=== PATIENT | female | born 1930 | race Caucasian/White ===

== ENCOUNTER 2018-09-22 21:28 | Inpatient (IN) ==
[2018-09-22] MEDS ORDERED: fentaNYL citrate 100 MCG/2 ML VIAL ONE (21:49)
[2018-09-22 22:06] LABS: Basophils # (auto) 0.01 K/uL (0-0.2); Basophils % (auto) 0.1 %; Eosinophils # (auto) 0.01 K/uL (0-0.5); Eosinophils % (auto) 0.1 %; Hematocrit (blood only) 37.9 % (37-47); Hemoglobin 12.6 g/dL (12.0-16.0); Immature Granulocytes # (auto) 0.02 K/uL (0.00-0.02); Immature Granulocytes % (auto) 0.2 %; Lymphocytes # (auto) 0.69 K/uL (1.2-3.4); Mean Corpuscular Hgb Conc 33.2 g/dL (32-36); Mean Corpuscular Volume 96.4 fL (80-100); Mean Platelet Volume 10.9 fL (7.4-10.4); Monocytes # (auto) 0.51 K/uL (0.11-0.59); Monocytes % (auto) 5.2 %; Neutrophils # (auto) 8.61 K/uL (1.4-6.5); Neutrophils % (auto) 87.4 %; Platelet Count 195 K/uL (130-400); RDW Standard Deviation 49.6 fL (36.4-46.3); Red Blood Count 3.93 M/uL (4.2-5.4); White Blood Count 9.85 K/uL (4.8-10.8)
[2018-09-22 22:22] LABS: Partial Thromboplastin Ratio 0.8; Partial Thromboplastin Time 22.1 Seconds (21.0-31.0); Prothrombin Time 10.4 Seconds (9.0-12.0)
[2018-09-22 22:24] LABS: Albumin Level 3.2 gm/dl (3.4-5.0); BUN Creatinine Ratio 15.5 (10-20); Calcium 9.3 mg/dl (8.5-10.1); Creatinine Clr Calc Pharmacy 46.6 ml/min; Est GFR (Non-African American) 63.9; Potassium 3.6 mmol/L (3.5-5.1)
[2018-09-22 22:27] LABS: Albumin Globulin Ratio 0.9 (0.9-2); Bilirubin,Total 0.4 mg/dl (0.2-1); Globulin 3.7 gm/dl (2.5-4.0); Total Protein 6.9 gm/dl (6.4-8.2)
[2018-09-22 22:28] LABS: Appearance Urine Clear (Clear); Bilirubin Urine Negative (Negative); Blood Urine Negative (Negative); Color Urine Yellow; Glucose Urine UA Negative (Negative); Ketones Urine Negative (Negative); Leukocyte Esterase Urine Negative (Negative); Nitrite Urine Negative (Negative); Protein Urine Negative (Negative); Specific Gravity Urine 1.014 (1.000-1.030); Urobilinogen Urine Negative (Negative)
--- NOTE | 2018-09-22 22:48 | XRay Report ---
XR hip RT 2-3V w pelvis CLINICAL HISTORY: fall eval for fx. Right hip pain. COMPARISON STUDY: None. FINDINGS: A right femoral neck fracture demonstrating 1.5 cm of superior displacement. No dislocation . The visualized pelvic bones and left hip are intact. No fractures identified within the sacrum. IMPRESSION: Mildly displaced right femoral neck fracture. Electronically signed by: León Joyner M.D. 09/22/2018 10:46 PM
--- NOTE | 2018-09-22 22:55 | XRay Report ---
XR chest 1V portable HISTORY: Fall. Right hip pain. Right hip fracture. COMPARISON: None. FINDINGS: No pneumothorax. No pleural effusions. Mitral annulus calcifications are noted. The heart i s top normal in size. The lungs are clear. Lucency through the left posterior eighth rib appears to b e due to overlying soft tissue artifact rather than a rib fracture. IMPRESSION: No acute process within the chest. Lucency through the left posterior eighth rib is likely due overly ing soft tissue artifact. Recommend correlation for point tenderness to exclude the possibility of an acute rib fracture. Electronically signed by: León Joyner M.D. 09/22/2018 10:54 PM
[2018-09-22] MEDS ORDERED: MoRPHine SULFATE 2 MG/ML CARP IV STA (23:33)
[2018-09-22] MEDS ORDERED: ONDANSETRON INJ 2 MG/ML 2 ML VIAL IV STA (23:33)
--- NOTE | 2018-09-22 23:59 | Emergency Department Note ---
Entered by Yeimy Contreras acting as a scribe for Jhonny Atwood MD History of Present Illness General Chief complaint: Hip Pain Stated complaint: Right hip pain Source: patient and other (nursing staff) Mode of arrival: EMS History of Present Illness Provider complaint: hip pain Onset (ago): hour(s) 4 Location: hip (right) Maximum Pain Intensity: 2 Exacerbated By: + movement Associated symptoms: + other (-head pain, -neck pain) Treatments prior to arrival: other (fentanyl) The patient is a 88 year old female who presents to the Emergency Room with complaints of hip pain. Per the nursing staff, the patient was trying to hang something up in her garden, lost her balance, and fell on her right hip at 1700. They state that the patient's neighbor found her on the ground at 2030 and the EMS was called. The patient states that her right hip pain worsens with movement and she is experiencing no head or neck pain. She states that she experienced no head injury. The patient states that she is not on any blood thinners and no other medications. Per the nursing staff, the patient states that she has taken fentanyl in the EMS prior to arrival which alleviated her pain. Home Medications Home Medications Medication Instructions Recorded Confirmed Type Eye Vitamins 1 tab PO BID 09/22/18 09/22/18 History dextran 70-hypromellose (PF) 1 drp OPB DAILY PRN 09/22/18 09/22/18 History [Artificial Tears (PF)] Allergies Allergy/AdvReac Type Severity Reaction Status Date / Time No Known Allergies Allergy Unverified 09/22/18 22:54 Past Med/Surg History Medical History No significant medical problems Social History Feels Safe at Home: Yes Smoking Status: Former smoker Review of Systems See HPI for pertinent positives & negatives. and A total of 10 systems reviewed and were otherwise negative Physical Exam Vital Signs Vital Signs - 24 hr 09/22/18 21:32 09/22/18 22:18 09/22/18 23:15 Temperature 36.6 C Temperature Source Oral Sepsis Recent Fever Within 48 Hours No Sepsis Action Taken by Nursing No Action Required Pulse Rate 77 Pulse Rate [Apical] 70 97 H Pulse Rhythm Regular Respiratory Rate 18 22 20 Respiratory Effort / Characteristics Non-Labored Spontaneous Non-Labored Spontaneous Non-Labored Spontaneous Respiratory Depth Normal Normal Normal Respiratory Pattern Regular Blood Pressure 151/81 H Blood Pressure [Left Arm] 163/94 H 176/93 H Blood Pressure Mean 104 Blood Pressure Mean [Left Arm] 117 120 Blood Pressure Position Lying Blood Pressure Position [Left Arm] Lying Pulse Oximetry 97 98 98 Oxygen Delivery Method Room Air Room Air Room Air Constitutional: Vital signs reviewed. Eyes: Pupils are equal round reactive to light. Conjunctiva are noninjected. ENT: Pharynx is clear without erythema or exudate. Mucous membranes are dry. Neck supple without meningeal signs. No midline tenderness to the cervical spine. Respiratory: Clear to auscultation bilaterally. Breath sounds are equal bilaterally. Cardiovascular: Regular rate and rhythm. No rubs or gallops. GI: Soft, nondistended and nontender. Bowel sounds are present. Musculoskeletal: Right hip tenderness with shortening. Normal distal pulses. Integumentary: No cyanosis. Neurological: The patient is awake and alert. No focal deficits. Psychiatric: Normal affect. Course 2139: The patient was evaluated in room C4, and a complete history and physical examination were performed. 2208: I reevaluated the patient and she is currently not experiencing any pain. I discussed the patient's results with her family who had just arrived. 2300: [facility], he will do a further evaluation on the patient. 2304: I reevaluated the patient and discussed the patient's results. At this time the patient is asking for pain medications for her hip pain. The patient also shows no left rib pain or tenderness. Reevaluation(s) Reevaluation #1: I discussed the [facility]'s [facility], he will do a further evaluation on the patient. Time: 23:01 Administered Medications Discontinued Medications Morphine Sulfate (Morphine Sulfate) 2 mg IV NOW STA Stop: 09/22/18 23:34 Last Admin: 09/22/18 23:40 Dose: 2 mg Documented by: [id number] Ondansetron HCl (Zofran) 4 mg IV NOW STA Stop: 09/22/18 23:34 Last Admin: 09/22/18 23:40 Dose: 4 mg Documented by: [id number] Medical Decision Making Differential Diagnosis Differential's include hip fracture, hip dislocation, pelvic fracture, strain, hypothermia, and dehydration. Medical Records Attestation: I reviewed the patient's medical records. I did perform a limited focused review of portions of the patient's old chart on the electronic medical record. The patient has had no recent pertinent visits to this hospital. Home Medications Current Medication List: was personally reviewed by me Laboratory Data Attestation: I reviewed the patient's lab results. Result diagrams: 09/22/18 21:57 09/22/18 21:57 Lab Results 09/22/18 09/22/18 09/22/18 Range/Units 21:57 21:57 21:57 WBC 9.85 (4.8-10.8) K/uL RBC 3.93 L (4.2-5.4) M/uL Hgb 12.6 (12.0-16.0) g/dL Hct 37.9 (37-47) % MCV 96.4 (80-100) fL MCH 32.1 (25-34) pg MCHC 33.2 (32-36) g/dL RDW Std Deviation 49.6 H (36.4-46.3) fL RDW Coeff of Boris 14.0 (11.5-14.5) % Plt Count 195 (130-400) K/uL MPV 10.9 H (7.4-10.4) fL Immature Gran % (Auto) 0.2 % Neut % (Auto) 87.4 % Lymph % (Auto) 7.0 % Piute % (Auto) 5.2 % Eos % (Auto) 0.1 % Baso % (Auto) 0.1 % Immature Gran # (Auto) 0.02 (0.00-0.02) K/uL Neut # (Auto) 8.61 H (1.4-6.5) K/uL Lymph # (Auto) 0.69 L (1.2-3.4) K/uL Piute # (Auto) 0.51 (0.11-0.59) K/uL Eos # (Auto) 0.01 (0-0.5) K/uL Baso # (Auto) 0.01 (0-0.2) K/uL PT 10.4 (9.0-12.0) Seconds INR 1.0 (0.9-1.1) APTT 22.1 (21.0-31.0) Seconds PTT Ratio 0.8 Sodium 145 (136-145) mmol/L Potassium 3.6 (3.5-5.1) mmol/L Chloride 108 H (98-107) mmol/L Carbon Dioxide 26 (21-32) mmol/L Anion Gap 11.0 (3-11) BUN 13 (7-18) mg/dl Creatinine 0.83 (0.6-1.2) mg/dl Est Cr Clr Drug Dosing 46.6 ml/min Est GFR ( Amer) 74.0 Est GFR (Non-Af Amer) 63.9 BUN/Creatinine Ratio 15.5 (10-20) Glucose 100 H (70-99) mg/dl Calcium 9.3 (8.5-10.1) mg/dl Total Bilirubin 0.4 (0.2-1) mg/dl AST 21 (15-37) U/L ALT 15 (12-78) U/L Alkaline Phosphatase 79 (45-117) U/L Total Protein 6.9 (6.4-8.2) gm/dl Albumin 3.2 L (3.4-5.0) gm/dl Globulin 3.7 (2.5-4.0) gm/dl Albumin/Globulin Ratio 0.9 (0.9-2) Urine Color Urine Appearance (Clear) Urine pH (4.5-7.5) Ur Specific Holt (1.000-1.030) Urine Protein (Negative) Urine Glucose (UA) (Negative) Urine Ketones (Negative) Urine Blood (Negative) Urine Nitrite (Negative) Urine Bilirubin (Negative) Urine Urobilinogen (Negative) Ur Leukocyte Esterase (Negative) Blood Type Antibody Screen 09/22/18 09/22/18 Range/Units 21:57 22:01 WBC (4.8-10.8) K/uL RBC (4.2-5.4) M/uL Hgb (12.0-16.0) g/dL Hct (37-47) % MCV (80-100) fL MCH (25-34) pg MCHC (32-36) g/dL RDW Std Deviation (36.4-46.3) fL RDW Coeff of Boris (11.5-14.5) % Plt Count (130-400) K/uL MPV (7.4-10.4) fL Immature Gran % (Auto) % Neut % (Auto) % Lymph % (Auto) % Piute % (Auto) % Eos % (Auto) % Baso % (Auto) % Immature Gran # (Auto) (0.00-0.02) K/uL Neut # (Auto) (1.4-6.5) K/uL Lymph # (Auto) (1.2-3.4) K/uL Piute # (Auto) (0.11-0.59) K/uL Eos # (Auto) (0-0.5) K/uL Baso # (Auto) (0-0.2) K/uL PT (9.0-12.0) Seconds INR (0.9-1.1) APTT (21.0-31.0) Seconds PTT Ratio Sodium (136-145) mmol/L Potassium (3.5-5.1) mmol/L Chloride (98-107) mmol/L Carbon Dioxide (21-32) mmol/L Anion Gap (3-11) BUN (7-18) mg/dl Creatinine (0.6-1.2) mg/dl Est Cr Clr Drug Dosing ml/min Est GFR ( Amer) Est GFR (Non-Af Amer) BUN/Creatinine Ratio (10-20) Glucose (70-99) mg/dl Calcium (8.5-10.1) mg/dl Total Bilirubin (0.2-1) mg/dl AST (15-37) U/L ALT (12-78) U/L Alkaline Phosphatase (45-117) U/L Total Protein (6.4-8.2) gm/dl Albumin (3.4-5.0) gm/dl Globulin (2.5-4.0) gm/dl Albumin/Globulin Ratio (0.9-2) Urine Color Yellow Urine Appearance Clear (Clear) Urine pH 5.0 (4.5-7.5) Ur Specific Holt 1.014 (1.000-1.030) Urine Protein Negative (Negative) Urine Glucose (UA) Negative (Negative) Urine Ketones Negative (Negative) Urine Blood Negative (Negative) Urine Nitrite Negative (Negative) Urine Bilirubin Negative (Negative) Urine Urobilinogen Negative (Negative) Ur Leukocyte Esterase Negative (Negative) Blood Type O Positive Antibody Screen NEGATIVE Imaging Data Radiologist's Impression: Radiology results as stated below per my review and the radiologist's interpretation: XR hip RT 2-3V w pelvis CLINICAL HISTORY: fall eval for fx. Right hip pain. COMPARISON STUDY: None. FINDINGS: A right femoral neck fracture demonstrating 1.5 cm of superior displacement. No dislocation. The visualized pelvic bones and left hip are int act. No fractures identified within the sacrum. IMPRESSION: Mildly displaced right femoral neck fracture. Electronically signed by: León Joynre M.D. 09/22/2018 10:46 PM XR chest 1V portable HISTORY: Fall. Right hip pain. Right hip fracture. COMPARISON: None. FINDINGS: No pneumothorax. No pleural effusions. Mitral annulus calcifications are noted. The heart is top normal in size. The lungs are clear. Lucency through the left posterior eighth rib appears to be due to overlying soft tissue artifact rather than a rib fracture. IMPRESSION: No acute process within the chest. Lucency through the left posterior eighth rib is likely due overlying soft tissue artifact. Recommend correlation for point tenderness to exclude the possibility of an acute rib fracture. Electronically signed by: León Joyner M.D. 09/22/2018 10:54 PM ECG Data Attestation: I personally reviewed and interpreted this ECG as follows: Indication: other (hip pain) Rate (beats per minute): 77 Findings: no PVC and no ST elevation Additional Comments: Limited interpretation due to motion artifact. Blood Pressure Blood Pressure Findings: Elevated blood pressure Blood Pressure Disposition: Referred to patients primary care provider MDM Narrative I did evaluate the patient as noted above. She is presenting with a mechanical fall with a hip injury. She appears to have a hip fracture. Her pain was controlled with fentanyl prior to arrival. The patient was placed on a continuous director of cardiac cath lab. I did order and personally review the patient's 12- lead EKG as described above. She has no signs of acute ischemia. I did order and personally reviewed the images of the patient's hip/pelvis/chest x-ray as de scribed above. She does have a femoral neck fracture. There was a question of a left rib fracture but the patient has no pain or tenderness to that area. I did order and review the patient's blood work as noted in the electronic medical record. Labs are unremarkable. She is not anemic. Her white count is not elevated. I did discuss the test results with the patient and her family. She was having some increased pain and so I did treat her with IV morphine and Zofran. I did discuss the case with the hospitalist and correctional counselor/case manager. Impression & Plan Closed fracture of right hip, Fall Discharge Plan Visit Data Chief Complaint: Hip Pain Stated Complaint: Right hip pain ED Provider: Jhonny Atwood Discharge Problem: Closed fracture of right hip, Fall Patient Disposition: Being Evaluated by Hospitalist Forms Stand Alone Forms: My [facility] Prescriptions Prescriptions: No Action Artificial Tears (PF) 0.1-0.3 % Dropperette 1 drp OPB DAILY PRN (Reason: Dry Eyes) RF: 0 Eye Vitamins 1 tab PO BID RF: 0 Referrals Referrals: PCP,NO [Primary Care Provider] - Discharge Problem: Closed fracture of right hip Qualifiers: Encounter type: initial encounter Qualified Code(s): S72.001A - Fracture of unspecified part of neck of right femur, initial encounter for closed fracture Fall Qualifiers: Encounter type: initial encounter Qualified Code(s): W19.XXXA - Unspecified f all, initial encounter The scribe's documentation has been prepared under my direction and personally reviewed by me in its entirety. I confirm that the note above accurately reflects all work, treatment, procedures, and medical decision making performed by me.
[2018-09-23] MEDS ORDERED: HYDROmorphone INJ 0.5 MG/0.5 ML SYR IV STA (00:30)
--- NOTE | 2018-09-23 00:34 | History & Physical Report ---
Date of Service September 23, 2018 Assessment & Plan (1) Closed fracture of right hip: 88-year-old female with no known past medical history except cataracts presents following a mechanical fall and subsequent right hip fracture. RCRI score of 3.9%no known ischemic heart disease, no history of CVA or congestive heart failure. Patient denies having chest pain, dyspnea at rest or with exertion. She describes being fully independent, no issues with ambulation, is able to walk upstairs. She denies seeing a doctor in the past other than her eye doctor. Review of medical records limited to ED work-up and patient's oral history. No contraindication to surgical procedure based on patient's oral history, physical exam and ED chart review. Right hip fracture Pain controlDilaudid 0.5 mg every 3 hour, n.p.o., LR at 80cc/h Ortho consult RCRI 3.9% DVT prophylaxis Contraindicated, possible surgery tomorow CODE STATUS Full (2) Fall: History of Present Illness Primary Care Provider: NO PCP 88-year-old female with no known past medical history presents with a right hip fracture following mechanical fall. The injury occurred while she was hanging something on her porch. She states that she misjudged where the hook was and fell forward. She denies any syncope or loss of consciousness prior to or after the fall. She denies any head injury. Unfortunately, patient lives alone and laid on the porch for approximately 3 hours before she was found by her neighbors. She states that she is fully independent and is able to drive and grocery shop on her own. Prior to fall the patient is able to get up and down stairs on her own. She denies any history of heart disease, renal disease, diabetes, CHF, TIA/stroke. She does not take any blood thinning medications. She endorses a healthy diet and normal bowel movements. She reports that she is never gone to a doctor other than her eye doctor and medical history is therefore unknown. Her only son lives in [place], but the patient states that she is well supported by her neighbors and her friends. Review of systems Constitutional; no fevers, chills, night sweats CV; no chest pain, no shortness of breath, no palpitations Pulmonary; no cough, no wheezing GI; no abdominal pain, no nausea/vomiting/diarrhea MSK; right hip pain standing down her right leg Allergies Allergy/AdvReac Type Severity Reaction Status Date / Time No Known Allergies Allergy Unverified 09/22/18 22:54 Home Medications Home Medications Medication Instructions Recorded Confirmed Type Eye Vitamins 1 tab PO BID 09/22/18 09/22/18 History dextran 70-hypromellose (PF) 1 drp OPB DAILY PRN 09/22/18 09/22/18 History [Artificial Tears (PF)] Past Med/Surg History Medical History No significant medical problems Social History Preferred Language: Wolof Communication Ability: Effective Rail Signal Worker Required: No Beliefs That Will Affect Care: None Current Living Situation: Alone Other Information That Helps Us Care for You: No Feels Safe at Home: Yes Safety Concerns: Feels Safe At This Time Smoking Status: Former smoker Hx Alcohol Use: No Hx Substance Use: No Review of Systems Review of Systems: All systems reviewed & are unremarkable except as noted in HPI & below Physical Exam 2 Constitutional: WD/WN, vitals as above Eyes: PERRL, conjunctivae normal, anicteric sclerae ENMT: external ear and nose normal, oropharynx normal Neck: trachea midline, no thyromegaly Respiratory: normal respiratory effort, lungs clear to auscultation Cardiovascular: Rate/Rhythm: regular rate and regular rhythm (Occasional extra beat) Heart Sounds: + murmur (2 out of 6 systolic murmur) Gastrointestinal (Abdomen): normal bowel sounds, soft, nontender, no hepatosplenomegaly Musculoskeletal: Head/Neck/Chest: normocephalic and head atraumatic Equal strength in upper extremity, deferred lower extremity exam as the patient is in severe pain, no open wounds noted on the lateral aspect of the right hip Skin: no rashes, warm and dry Neurologic: PERRL, EOMI, accommodation nl, no face palsy, no dysarthria Psychiatric: A+Ox3, euthymic affect Results & Data Vital Signs (Past 12 Hours) Vital Signs Temp Pulse Pulse Resp BP BP Pulse Ox 09/22/18 23:15 97 H 20 176/93 H 98 09/22/18 22:18 70 22 163/94 H 98 09/22/18 21:32 36.6 C 77 18 151/81 H 97 Diagnostic Findings XR chest 1V portable HISTORY: Fall. Right hip pain. Right hip fracture. COMPARISON: None. FINDINGS: No pneumothorax. No pleural effusions. Mitral annulus calcifications are noted. The heart is top normal in size. The lungs are clear. Lucency through the left posterior eighth rib appears to be due to overlying soft tissue artifact rather than a rib fracture. IMPRESSION: No acute process within the chest. Lucency through the left posterior eighth rib is likely due overlying soft tissue artifact. Recommend correlation for point t enderness to exclude the possibility of an acute rib fracture. Electronically signed by: León Joyner M.D. 09/22/2018 10:54 PM Dictated: 09/22/182242 Transcribed: 09/22/182244 XR hip RT 2-3V w pelvis CLINICAL HISTORY: fall eval for fx. Right hip pain. COMPARISON STUDY: None. FINDINGS: A right femoral neck fracture demonstrating 1.5 cm of superior displacement. No dislocation. The visualized pelvic bones and left hip are intact. No fractures identified within the sacrum. IMPRESSION: Mildly displaced right femoral neck fracture. Electronically signed by: León Joyner M.D. 09/22/2018 10:46 PM Dictated: 09/22/182245 Transcribed: 09/22/182245 Supervising Physician Co-Signing Physician Notes Pt seen/examined following resident MD Rikki Damian. Orders and plan of admission formulated with resident 88 y/o F who denies a medical history but is not in the habit of medical follow up. Presents after a mechanical fall and resultant R femoral neck fracture OE AAO x 3 S1,2 R CTAB NT, ND No CCE - pulses + P: Does not appear to have any significant cardiovascular risk. EKG pending for preop assessment. Can likely proceed to surgery. Orthopedics consulted. (1) Fall Encounter type: initial encounter Qualified Code(s): W19.XXXA - Unspecified fall, initial encounter (2) Closed fracture of right hip Encounter type: initial encounter Qualified Code(s): S72.001A - Fracture of unspecified part of neck of right femur, initial encounter for closed fracture
[2018-09-23] MEDS ORDERED: HYDROmorphone INJ 0.5 MG/0.5 ML SYR IV PRN ×2 (01:14→16:26)
[2018-09-23] MEDS ORDERED: LACTATED RINGER'S 1,000 ML IV SCH (01:14)
[2018-09-23] MEDS: HYDROmorphone INJ 0.5 MG/0.5 ML SYR IV PRN ×3 (05:45→22:40)
[2018-09-23 06:08] LABS: Hematocrit (blood only) 36.7 % (37-47); Hemoglobin 12.2 g/dL (12.0-16.0); Immature Granulocytes # (auto) 0.01 K/uL (0.00-0.02); Immature Granulocytes % (auto) 0.1 %; Lymphocytes % (auto) 9.9 %; Mean Corpuscular Hgb Conc 33.2 g/dL (32-36); Mean Corpuscular Volume 95.8 fL (80-100); Mean Platelet Volume 10.9 fL (7.4-10.4); Monocytes # (auto) 0.56 K/uL (0.11-0.59); Monocytes % (auto) 7.9 %; Neutrophils # (auto) 5.82 K/uL (1.4-6.5); Neutrophils % (auto) 82.1 %; Platelet Count 184 K/uL (130-400); RDW Coefficient of Variation 14.2 % (11.5-14.5); RDW Standard Deviation 49.8 fL (36.4-46.3); Red Blood Count 3.83 M/uL (4.2-5.4); White Blood Count 7.09 K/uL (4.8-10.8)
[2018-09-23 06:35] LABS: Albumin Level 2.9 gm/dl (3.4-5.0); BUN Creatinine Ratio 17.4 (10-20); Calcium 9.1 mg/dl (8.5-10.1); Creatinine Clr Calc Pharmacy 55.9 ml/min; Est GFR (African American) 91.4; Est GFR (Non-African American) 78.8; Potassium 3.5 mmol/L (3.5-5.1)
[2018-09-23 06:38] LABS: Albumin Globulin Ratio 0.8 (0.9-2); Bilirubin,Total 0.6 mg/dl (0.2-1); Globulin 3.5 gm/dl (2.5-4.0); Total Protein 6.4 gm/dl (6.4-8.2)
[2018-09-23] MEDS ORDERED: PROPOFOL IV EMULSION 10 MG/ML 20 ML VIAL IV ONE ×2 (09:02→12:44)
[2018-09-23] MEDS ORDERED: fentaNYL citrate 100 MCG/2 ML VIAL ONE ×2 (09:03→11:37)
[2018-09-23] MEDS ORDERED: LIDOCAINE HCL 2% 2 ML VIAL/AMP(20MG/ML) INFIL ONE ×2 (09:03→12:44)
--- NOTE | 2018-09-23 09:11 | History and Physical Report ---
DATE OF ADMISSION: 09/23/2018 CHIEF COMPLAINT: Right hip pain. HISTORY OF PRESENT ILLNESS: The patient is an 88-year-old white female who [place] who was hanging up a plant yesterday when she kind of misjudged some distance and lost her balance and fell from a ground height. She injured her right hip. She had acute onset of hip pain. She was found by her neighbors and then brought to the hospital. X-rays revealed displaced femoral neck fracture. The patient previously walked with use of a walking stick. No preexisting hip pain on this side. No other injuries. No head injury, no loss of consciousness, no neck pain. She has no real significant past medical history. PAST MEDICAL HISTORY: Significant for eye disease of unspecified nature. PAST SURGICAL HISTORY: Previous surgeries include intermittent eye exams and interventions of unspecified nature. ALLERGIES: None. CURRENT MEDICATIONS: Eye vitamins. SOCIAL HISTORY: An 88-year-old white female. She has relatives in the area, but lives by herself. [place]. Does not smoke. FAMILY HISTORY: Noncontributory. REVIEW OF HISTORY: Negative for diabetes, neurologic problems, vascular problems, bleeding disorders. No chest pain or shortness of breath. No head injury or loss of consciousness, no neck pain. OBJECTIVE: VITAL SIGNS: Temperature is 37.1. Vital signs stable. GENERAL: Physical examination shows a pleasant, elderly female. She is lying in bed and looks pretty comfortable. She is awake, alert and appropriate and oriented. MUSCULOSKELETAL: General musculoskeletal exam reveals painless range of motion of the cervical and thoracic and lumbar spine. She has no pain in her upper extremities and normal function of her upper extremities. Examination of the lower extremities reveals painless and full range of motion of left hip, knee, and ankle. Examination of the right hip and leg reveals the leg to be shortened and externally rotated. Moderate soft tissue envelope. She has no knee effusion. She can dorsiflex and plantarflex her foot appropriately. X-RAYS: X-rays of the right hip were reviewed. It shows a displaced femoral neck fracture. She has got diffuse osteopenia. No significant arthritis change on this side. 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 ASSESSMENT: An 88-year-old white female with no significant past medical history with a right displaced femoral neck fracture. PLAN: We discussed treatment options. She has been admitted by the hospitalist service. Medically, she looks stable. We are going to proceed with a right cemented bipolar hip arthroplasty. We are going to take her to the operating room and do a right cemented bipolar hip arthroplasty. The risks and benefits of this procedure were explained to the patient include but not limited to DVT, PE, , infection, neurological injury, vascular injury, bleeding problem, pain, limited range of motion, stiffness, nonunion fracture, dislocation, need for further surgery in the future, etc. The patient understands and desires to proceed. Informed consent was obtained. In the meantime, we will continue DVT prophylaxis including thigh-high TEDs and SCDs. We will likely put her on some aspirin postop. She will likely need a brief rehab stay.
[2018-09-23] MEDS ORDERED: BUPIVACAINE/EPINEPHRINE 0.5% MPF 1:200,000 30 ML VIAL ONE (11:52)
[2018-09-23] MEDS ORDERED: THROMBIN FOR SOLN 20000 UNIT KIT ONE (11:53)
[2018-09-23] MEDS ORDERED: BACITRACIN INJ 50,000 UNIT VIAL ONE (11:53)
[2018-09-23] MEDS ORDERED: ePHEDrine sulfate 50 MG/ML SYR ONE (12:44)
[2018-09-23] MEDS ORDERED: CEFAZOLIN 250 MG/ML 1 GM VIAL ONE (12:44)
[2018-09-23] MEDS ORDERED: PHENYLEPHRINE 100MCG/ML 5ML SYR ONE (12:44)
[2018-09-23] MEDS ORDERED: CEFAZOLIN 2000MG 2,000 MG/15 ML SYR IV ONE (13:14)
--- NOTE | 2018-09-23 14:00 | Post Operative Brief Note ---
Immediate Post Op Note v1 Date of Surgery September 23, 2018 Pre & Post Diagnosis Operation Date: 09/23/18 10:00 Pre-Op Diagnosis: Right Hip Fracture Post-Op Diagnosis: Right Hip Fracture Procedure Operation Date: 09/23/18 10:00 Actual Procedures p Bipolar Hip Prosthesis-Cemented(Right) - Pasquale Light MD Surgeon Pasquale Light MD Foreign Service Officer Gold, PAC Estimated Blood Loss 200 Findings Consistent with Post-Op Diagnosis Fluids 1100 cc Specimens Right Femoral Head Anesthesia Type Spinal MAC Complications none Disposition Accompanied Patient To Recovery: Yes Disposition: Recovery Room
--- NOTE | 2018-09-23 14:28 | Anesthesiology Progress Note ---
Date of Service September 23, 2018 Anesthesia Post Procedure Vital Signs Vital Signs: Temp Pulse Pulse Pulse Resp BP BP 09/23/18 13:59 36.2 C L 86 16 09/23/18 08:00 72 09/23/18 07:32 37.1 C 78 19 09/23/18 01:14 37.3 C 81 18 183/81 H 09/23/18 00:48 82 16 178/100 H 09/22/18 23:15 97 H 20 176/93 H 09/22/18 22:18 70 22 163/94 H 09/22/18 21:32 36.6 C 77 18 151/81 H BP Pulse Ox 09/23/18 13:59 136/61 100 09/23/18 08:00 09/23/18 07:32 148/74 H 93 09/23/18 01:14 93 09/23/18 00:48 95 09/22/18 23:15 98 09/22/18 22:18 98 09/22/18 21:32 97 Pain Intensity Right Hip: Pain Intensity: 6 Transfer of Care Handoff Completed per policy Notes Mental Status: alert / awake / arousable Patient Amnestic to Procedure: Yes Nausea / Vomiting: adequately controlled Pain: adequately controlled Airway Patency, RR, SpO2: stable & adequate BP & HR: stable & adequate Hydration State: stable & adequate Anesthetic Complications: no major complications apparent and Pt Satisfied with anesthetic care
--- NOTE | 2018-09-23 14:49 | XRay Report ---
XR hip RT min 2V CLINICAL HISTORY: Post-Operative implant position COMPARISON: 09/22/2018 DISCUSSION: Anatomic alignment post total right hip arthroplasty. Good contact between prosthetic and underlying bone. Expected soft tissue postoperative change. IMPRESSION: Anatomic alignment post total right hip arthroplasty. The above report was generated using voice recognition software. It may contain grammatical, syntax or spelling errors. Electronically signed by: Clark Jenkins M.D. 09/23/2018 2:48 PM
--- NOTE | 2018-09-23 15:41 | Family Medicine Progress Note ---
Date of Service September 23, 2018 Assessment & Plan (1) Closed fracture of right hip: Jaz Harris is an 88-year-old female with cataracts and no other known past medical history presents after being found down by her neighbor following a fall with right hip fracture confirmed on x-ray. Right hip fracture, closed Minimally anteriorly displaced right femoral neck fracture Orthopedic surgery consulted Pending surgical repair of right hip with Dr. Light today Pain control with hydromorphone 0.5 mg every 3 hours as needed, n.p.o. pending surgery RCRI 3.9% Fall Her fall was reportedly mechanical in nature due to over region hanging implant and missing a hook. Her history does not have any elements concerning for cardiac or neurogenic syncope. She has no other medical history, no she does not see a physician for anything other than her eyes. EKG shows normal sinus rhythm. Hypertension She has been intermittently tachycardic and hypertensive in the setting of an acute fracture. Continue to assess following surgery, and whether she would benefit from referral to a PCP on discharge for evaluation of chronic medical problems DVT prophylaxis Contraindicated in the setting of pending surgery Diet: N.p.o. pending surgery CODE STATUS: Full code Supervising Physician Co-Signing Physician Notes I personally examined the patient and verified all conway points of history and exam, discussed case, and agree with decision making with Dr Younger. Feeling reasonably well postop, asks for some pain medicine and warm blankets. Otherwise she only wants a milkshake. Vitals noted, in general she is awake and alert pleasant no distress. HEENT normocephalic atraumatic mucous members moist. Legs show no edema or erythema. Neuro shows no focal deficits Hip fractureosteoporosis work-up as an outpatient, pain control and supportive care now. DVT prophylaxisPer orthopedics (aspirin twice daily) Subjective Currently reports she feels okay today, other than the pain in her right hip. She did not have any fevers, chills, sweats overnight. She notes that her fall was mechanical, and she was not lightheaded or dizzy prior. She notes that her vision is poor, and she has cataracts at baseline. She was hanging plants in her yard and had tried to reach up to hang 1 on a hook but missed and fell.She has talked to surgery this morning, notes they plan to do hip surgery today. She denies any heart history, any history of diabetes. She has no questions or concerns today. She notes that her sister Palma is in [place] on a river cruise and her [id number] George is a retired [employer] physician. She notes that if they call we may speak with them regarding her case. Review of Systems Review of Systems: Constitutional: Denies fever, chills, malaise, Eyes: Denies double vision, vision change, eye pain. Endorses chronic decreased visual acuity. ENT: Denies ear pain, sore throat, sinus pain Cardiovascular: Denies Chest pain, chest pressure, palpitations, extremity swelling Respiratory: Denies shortness of breath, cough, sputum production, difficulty breathing Gastrointestinal: Denies abdominal pain, nausea, vomiting, constipation, diarrhea Genitourinary: Denies pain with urination, urinary urgency, urinary frequency Musculoskeletal: Denies weakness. Endorses R hip ache. Integumentary:Denies rash, lesions, bruising Neurological: Denies headache, numbness, tingling Physical Exam Physical Exam: General: A&Ox3. NAD. Cooperative. Laying in bed at time of visit. HEENT: Atraumatic, normocephalic. Pulm: CTAB A&P. -wheezes, -rales, -rhonchi. Symmetrical chest rise. No increased work of breathing. No respiratory distress. Cardiac: iii/vi systolic murmur. RRR, -rg. Radial pulses intact and symmetrical. Abdominal: Nontender, nondistended, soft. BS present. Extremity: R hip tender to palpation without erythema, warmth, bruising. Minimal tenderness of the ribs. Results & Data Vital Signs (Past 12 Hours) Vital Signs Temp Pulse Pulse Pulse Resp BP BP 09/23/18 08:00 72 09/23/18 07:32 37.1 C 78 19 09/23/18 01:14 37.3 C 81 18 183/81 H 09/23/18 00:48 82 16 178/100 H 09/22/18 23:15 97 H 20 176/93 H 09/22/18 22:18 70 22 163/94 H BP Pulse Ox 09/23/18 08:00 09/23/18 07:32 148/74 H 93 09/23/18 01:14 93 09/23/18 00:48 95 05/26/19 23:15 98 09/22/18 22:18 98 Resident Activity Tracking Resident Involvement: Resident Care Provided Care Provided: Adult Hospital Medicine (1) Closed fracture of right hip Encounter type: initial encounter Qualified Code(s): S72.001A - Fracture of unspecified part of neck of right femur, initial encounter for closed fracture
[2018-09-23] MEDS ORDERED: MAGNESIUM HYDROXIDE SUSP 30 ML UDC PO PRN (16:26)
[2018-09-23] MEDS ORDERED: BISACODYL 10 MG SUPP PR PRN (16:26)
[2018-09-23] MEDS ORDERED: ACETAMINOPHEN 325 MG TAB PO PRN (16:26)
[2018-09-23] MEDS ORDERED: NALOXONE HCL 0.4 MG/1 ML VIAL/CARP IV PRN (16:26)
[2018-09-23] MEDS ORDERED: ONDANSETRON INJ 2 MG/ML 2 ML VIAL IV PRN (16:26)
[2018-09-23] MEDS ORDERED: ACETAMINOPHEN 325 MG TAB PO STA (17:23)
[2018-09-23] MEDS: OXYCODONE HCL IR 5 MG TAB (IMMEDIATE RELEASE) PO PRN (17:35)
[2018-09-23] MEDS: CEFAZOLIN 1000MG 1,000 MG/7.5 ML SYR IV SCH (19:59)
[2018-09-23] MEDS: SENNA 8.6 MG TAB PO SCH (20:12)
[2018-09-23] MEDS: ASPIRIN 81 MG ECTAB PO SCH (20:12)
--- NOTE | 2018-09-23 22:41 | Operative Report ---
DATE OF OPERATION: 09/23/2018 SURGEON: Pasquale Light MD RN PLASTIC SURGERY: Hasmukh Ruiz PA-C PREOPERATIVE DIAGNOSIS: Right displaced femoral neck fracture. POSTOPERATIVE DIAGNOSIS: Right displaced femoral neck fracture. PROCEDURE PERFORMED: Right cemented bipolar hip arthroplasty. COMPLICATIONS: None. ESTIMATED BLOOD LOSS: 200 mL. FLUID REPLACEMENT: 1100 mL crystalloid fluid replacement. ANESTHESIA: Spinal. DRAINS: None. SPECIMENS: Right femoral head sent for pathology. OPERATIVE INDICATIONS: The patient is an 88-year-old female who lives by herself who sustained a fall yesterday while trying to hang up some plants. She had acute onset of pain and could not ambulate. She was found by neighbors, brought to Emergency Room and x-rays revealed displaced femoral neck fracture. The patient was admitted by the medicine service, and medically optimized and indicated for surgical treatment. She had no preexisting hip pain or arthritis. OPERATIVE IMPLANTS: Operative implants consisted of: 1. Biomet Echo size 7 hip fracture stem. 2. A +6/28 mm articular ball. 3. A 47 mm bipolar shell and liner. 4. A size 10 centralizer. 5. A small cement restrictor. OPERATIVE PROCEDURE: The patient taken to the operating room, identified and placed on operative table in supine position. All contact areas were appropriately padded. IV antibiotics were provided by anesthesia team. A spinal anesthetic was implemented by anesthesia team. IV antibiotics were provided. The patient was then placed on the OR table in the left lateral decubitus position. An axillary roll was placed. Stlberg hip positioner was used for positioning. The patient was grossly dirty and I initially scrubbed her right leg and hip area with Hibiclens and then prepped it with ChloraPrep and then draped in the usual sterile fashion. A posterolateral approach of the right hip was then performed through a curvilinear incision centered over the greater trochanter. Sharp dissection was carried through subcutaneously down to the level of the IT band and gluteal fascia. There was some thickening in the upper part of the incision site, but it was just kind of thickened and chronically indurated tissue. We had to dissect through this to get the IT band and gluteal fascia. The IT band and gluteal fascia were then incised longitudinally in line with skin incision. The outer lying greater trochanteric bursa was excised. The piriformis and external rotators were tagged and taken off the posterior aspect of the hip joint capsule. A posterior capsulotomy was then performed leaving 2 flaps for later repair. Hip was internally rotated. Femoral neck osteotomy cut was made just below the level of the fracture site by 1 cm above the lesser trochanter. Femoral neck was removed. The femur was retracted anteriorly. Femoral head was removed. I then sized the acetabulum to a size 47. Attention was then drawn to the femur. The proximal femur was entered with a cookie cutter followed by canal finder and lateralizing reamer. I broached the beginning with size 7 and progressing up to a 9. A calcar reamer was used to smoothen off the calcar. I then trialed the hip. She had quite a bit of offset. So the soft tissue tension was a little bit lax. After final assessment of leg lengths and soft tissue tension, we elected to place the +6 articular ball. It was fully stable in full extension and external rotation and flexion to 90 degrees, internal rotation to over 60 degrees. Soft tissue tension seemed pretty close, although it was felt a little bit lax. I elected to place these implants. All trial implants were removed. A small cement restrictor was placed. I irrigated the canal extensively. A double batch of Palacos G cement was mixed. Biomet Echo size 7 low demand fracture stem was then placed with a 10 centralizer as much anteversion as I could place it. All extraneous cement was removed. I held the stem until the cement hardened. Once the cement hardened, a +6/28 mm articular ball was placed followed by 47 bipolar shell and liner. Hip was located and once again found to be stable. Attention was then drawn toward closing. The wound was irrigated with copious amounts of pulsatile lavage solution. I did inject locally with 30 mL of 0.5% Marcaine with epinephrine. The posterior capsule was then repaired with #2 Ti-Cron suture. The external rotators were reattached to the posterior aspect of the hip abductors with #2 Ti-Cron suture. The IT band and gluteal fascia were then closed with #1 PDS suture in running fashion. The subcutaneous tissues were then closed in 2 layers, the deep layer of 0 Vicryl suture in buried interrupted fashion, subcutaneous tissue with 2-0 Dexon suture in a buried interrupted fashion. The skin was then closed with skin richie. Leg was then cleaned, dried and a sterile dressing of Xeroform, 4 x 4's, ABD pad and foam tape was applied. The patient then transferred to the recovery room in stable condition. The patient tolerated the procedure well with no complications. All needle and sponge counts correct at the end of the operation. I attest to the content of the Intraoperative Record and any orders documented therein. Any exception s are noted below.
[2018-09-24] MEDS: CEFAZOLIN 1000MG 1,000 MG/7.5 ML SYR IV SCH (04:01)
[2018-09-24 05:46] LABS: Hematocrit (blood only) 34.3 % (37-47); Hemoglobin 11.7 g/dL (12.0-16.0); Immature Granulocytes # (auto) 0.02 K/uL (0.00-0.02); Immature Granulocytes % (auto) 0.3 %; Lymphocytes # (auto) 0.41 K/uL (1.2-3.4); Lymphocytes % (auto) 5.9 %; Mean Corpuscular Hgb Conc 34.1 g/dL (32-36); Mean Corpuscular Volume 96.6 fL (80-100); Mean Platelet Volume 11.1 fL (7.4-10.4); Monocytes # (auto) 0.48 K/uL (0.11-0.59); Monocytes % (auto) 6.9 %; Neutrophils # (auto) 6.03 K/uL (1.4-6.5); Neutrophils % (auto) 86.9 %; Platelet Count 160 K/uL (130-400); RDW Coefficient of Variation 14.2 % (11.5-14.5); RDW Standard Deviation 50.2 fL (36.4-46.3); Red Blood Count 3.55 M/uL (4.2-5.4); White Blood Count 6.94 K/uL (4.8-10.8)
[2018-09-24 06:16] LABS: BUN Creatinine Ratio 16.9 (10-20); Calcium 8.2 mg/dl (8.5-10.1); Creatinine Clr Calc Pharmacy 52.8 ml/min; Est GFR (African American) 86.4; Est GFR (Non-African American) 74.6; Potassium 3.7 mmol/L (3.5-5.1)
[2018-09-24] MEDS: HYDROmorphone INJ 0.5 MG/0.5 ML SYR IV PRN ×2 (07:45→17:44)
--- NOTE | 2018-09-24 07:53 | Anesthesiology Progress Note ---
Date of Service September 24, 2018 Anesthesia Post Procedure Vital Signs Vital Signs: Temp Pulse Pulse Pulse Resp BP BP 09/24/18 07:17 36.8 C 83 18 143/81 H 09/24/18 05:50 37.2 C 82 16 121/68 09/24/18 04:00 36.9 C 90 16 159/72 H 09/24/18 01:40 09/24/18 00:05 09/23/18 22:40 36.8 C 81 16 125/72 09/23/18 18:47 99 H 16 116/68 09/23/18 17:49 111 H 16 150/80 H 09/23/18 16:47 80 16 122/67 09/23/18 16:20 37 C 84 16 145/72 H 09/23/18 15:50 36.8 C 85 18 151/76 H 09/23/18 15:26 87 14 141/75 H 09/23/18 15:25 89 16 09/23/18 15:21 82 18 152/74 H 09/23/18 15:20 81 14 09/23/18 15:19 36.6 C 09/23/18 15:16 82 16 146/77 H 09/23/18 15:15 86 18 09/23/18 15:10 89 18 154/85 H 09/23/18 15:07 82 14 09/23/18 15:06 90 149/75 H 09/23/18 15:05 82 09/23/18 15:01 83 147/93 H 09/23/18 15:00 91 H 09/23/18 14:57 83 09/23/18 14:56 87 15 152/79 H 09/23/18 14:55 89 14 09/23/18 14:51 87 16 158/78 H 09/23/18 14:50 89 18 09/23/18 14:46 84 16 162/74 H 09/23/18 14:45 86 14 09/23/18 14:41 83 16 176/76 H 09/23/18 14:40 85 14 09/23/18 14:36 86 18 147/76 H 09/23/18 14:35 99 H 16 09/23/18 14:32 90 14 09/23/18 14:31 89 14 108/56 L 09/23/18 14:30 90 16 09/23/18 14:26 84 14 161/89 H 09/23/18 14:25 84 13 09/23/18 14:21 84 18 164/73 H 09/23/18 14:20 87 18 09/23/18 14:16 85 12 167/58 H 09/23/18 14:15 87 16 09/23/18 14:11 18 146/89 H 09/23/18 14:10 14 09/23/18 14:06 87 16 149/78 H 09/23/18 14:05 90 14 09/23/18 14:01 84 16 136/61 09/23/18 14:00 88 14 09/23/18 13:59 36.2 C L 87 86 18 136/68 136/61 09/23/18 08:00 72 Pulse Ox 09/24/18 07:17 95 09/24/18 05:50 94 09/24/18 04:00 93 09/24/18 01:40 93 09/24/18 00:05 94 09/23/18 22:40 98 09/23/18 18:47 09/23/18 17:49 09/23/18 16:47 97 09/23/18 16:20 98 09/23/18 15:50 96 09/23/18 15:26 95 09/23/18 15:25 95 09/23/18 15:21 95 09/23/18 15:20 96 09/23/18 15:19 96 09/23/18 15:16 96 09/23/18 15:15 95 09/23/18 15:10 96 09/23/18 15:07 95 09/23/18 15:06 95 09/23/18 15:05 96 09/23/18 15:01 97 09/23/18 15:00 94 09/23/18 14:57 95 09/23/18 14:56 97 09/23/18 14:55 97 09/23/18 14:51 96 09/23/18 14:50 97 09/23/18 14:46 95 09/23/18 14:45 94 09/23/18 14:41 97 09/23/18 14:40 97 09/23/18 14:36 97 09/23/18 14:35 97 09/23/18 14:32 98 09/23/18 14:31 97 09/23/18 14:30 98 09/23/18 14:26 100 09/23/18 14:25 99 09/23/18 14:21 99 09/23/18 14:20 100 09/23/18 14:16 100 09/23/18 14:15 100 09/23/18 14:11 100 09/23/18 14:10 100 09/23/18 14:06 100 09/23/18 14:05 100 09/23/18 14:01 100 09/23/18 14:00 98 09/23/18 13:59 99 09/23/18 08:00 Pain Intensity Right Hip: Pain Intensity: 4 Notes Mental Status: alert / awake / arousable and participated in evaluation Patient Amnestic to Procedure: Yes Nausea / Vomiting: adequately controlled Pain: adequately controlled Airway Patency, RR, SpO2: stable & adequate BP & HR: stable & adequate Hydration State: stable & adequate Neuraxial Anesthesia: was administered and sensory block resolved Anesthetic Complications: no major complications apparent and Pt Satisfied with anesthetic care
[2018-09-24] MEDS: ASPIRIN 81 MG ECTAB PO SCH ×2 (08:40→21:28)
[2018-09-24] MEDS: OXYCODONE HCL IR 5 MG TAB (IMMEDIATE RELEASE) PO PRN ×2 (12:24→21:28)
[2018-09-24] MEDS: ACETAMINOPHEN 325 MG TAB PO PRN ×2 (12:24→21:28)
--- NOTE | 2018-09-24 13:32 | Family Medicine Progress Note ---
Date of Service September 24, 2018 Assessment & Plan (1) Closed fracture of right hip: Jaz Harris is an 88-year-old female with cataracts and no other known past medical history presents after being found down by her neighbor following a fall with right hip fracture confirmed on x-ray. Right hip fracture, closed, s/p R cemented bipolar hip arthroplasty 09/23/2018 On admission Jaz had a minimally anteriorly displaced right femoral neck fracture - Underwent surgical repair with Dr. preciado 09/23, no procedural complications - Pain control with APAP 650mg Q4H, Hydromorphone .25-5mg Q20M PRN - Activity and weight bearing status as direct per surgery -Per PT has 85% functional loss in the setting of RoM, strength, bed mobility, transfer mobility, and ambulation reduction. Recommend continued PT and acute inpatient rehab. OT reinforces that she is NOT safe to return home alone at this time and would benefit greatly from inpatient rehab. Fall Her fall was reportedly mechanical in nature due to over region hanging implant and missing a hook. Her history does not have any other elements suspicious for cardiac or neurogenic syncope. She has no other medical history, no she does not see a physician for anything other than her eyes. EKG shows normal sinus rhythm. Hypertension, resolved - Normotensive today She had been intermittently tachycardic and hypertensive in the setting of an acute fracture. DVT prophylaxis Contraindicated in the setting surgery Diet: Regular Diet CODE STATUS: Full code Dispo: KALYAN Supervising Physician Co-Signing Physician Notes I personally examined the patient and verified all conway points of history and exam, discussed case, and agree with decision making with Dr Younger. Seen just after working with occupational therapy. Having some pain. Vitals noted, in general she is awake and alert pleasant no distress. HEENT normocephalic atraumatic mucous members moist. Neuro shows no focal deficits Hip fractureosteoporosis work-up as an outpatient, pain control and supportive care now, work towards rehab. DVT prophylaxisPer orthopedics (aspirin twice daily) Continue supportive care, hopefully rehab by tomorrow. Subjective Car reports she feels well today. She is having some pain in her right hip which she feels is well controlled with hydromorphone, Tylenol, and an ice pack. She does not have any fever, chills, shortness of breath, chest pressure, chest pain, difficulty breathing, or rash. She has not yet been out of bed. Physical therapy/Occupational Therapy will see her today. No questions or concerns at time of visit. Review of Systems Review of Systems: Constitutional: Denies fever, chills, malaise, Eyes: Denies double vision, vision change, eye pain. Endorses chronic decreased visual acuity. ENT: Denies ear pain, sore throat, sinus pain Cardiovascular: Denies Chest pain, chest pressure, palpitations, extremity swelling Respiratory: Denies shortness of breath, cough, sputum production, difficulty breathing Gastrointestinal: Denies abdominal pain, nausea, vomiting, constipation, di arrhea Genitourinary: Denies pain with urination, urinary urgency, urinary frequency Musculoskeletal: Denies weakness. Endorses dull ache in her R hip, improved with Rx Integumentary: Endorses surgical incision at her R hip. Otherwise denies new rash, lesions, bruising Neurological: Denies headache, numbness, tingling Physical Exam Physical Exam: General: A&Ox3. NAD. Cooperative. Laying in bed at time of visit. HEENT: Atraumatic, normocephalic. Pulm: CTAB A&P. -wheezes, -rales, -rhonchi. Symmetrical chest rise. No increased work of breathing. No respiratory distress. Cardiac: iii/vi systolic murmur. RRR, -rg. Radial pulses intact and symmetrical. Abdominal: Nontender, nondistended, soft. BS present. Extremity: Posteriolateral R hip with surgical dressing in place, C/D/I. No pus, discharge, bleeding appreciated. Results & Data Vital Signs (Past 12 Hours) Vital Signs Temp Pulse Resp BP Pulse Ox 09/24/18 07:17 36.8 C 83 18 143/81 H 95 09/24/18 05:50 37.2 C 82 16 121/68 94 09/24/18 04:00 36.9 C 90 16 159/72 H 93 09/24/18 01:40 93 Resident Activity Tracking Resident Involvement: Resident Care Provided Care Provided: Adult Hospital Medicine (1) Closed fracture of right hip Encounter type: initial encounter Qualified Code(s): S72.001A - Fracture of unspecified part of neck of right femur, initial encounter for closed fracture
--- NOTE | 2018-09-24 14:07 | Progress Note ---
DATE: 09/24/2018 SUBJECTIVE: 88-year-old female postop day 1 from right cemented bipolar hip arthroplasty for fracture. She is doing well. She is having some fairly mild pain. She has been out of bed. No chest pain or shortness of breath. Not feeling dizzy or lightheaded. No new aches or pains. OBJECTIVE: VITAL SIGNS: Temperature 36.8. Vital signs stable. PHYSICAL EXAMINATION: GENERAL: Reveals a pleasant elderly female. She is awake, alert and oriented. She is sitting up in bed and talking to a friend. EXTREMITIES: Examination of the right hip reveals leg lengths are equal. Hip is located. Thigh is soft and supple. She is neurologically intact. LABORATORY DATA: Hemoglobin is 11.7. Hematocrit 34.3. Electrolytes are stable. ASSESSMENT: An 88-year-old white female postop day 1 from right cemented bipolar hip arthroplasty for fracture, doing well. Pain is controlled. Hip is located. She is neurologically intact. PLAN: 1. DVT prophylaxis including thigh-high TEDs, SCDs, and recommend a baby aspirin twice a day for 6 weeks. 2. PT/OT. Weight bear as tolerated. Right total hip protocol. 3. Pain control, doing well with current pain regimen. Try and limit narcotics use to avoid confusion. 4. Disposition: Plan to discharge to a rehab or retirement facility. Social service is working on this. She is orthopedically stable and acceptable for transfer any time medically stable. I need to see her back 2 weeks out from surgery date. Any orthopedic questions can directed to me at [phone].
[2018-09-24] MEDS: SENNA 8.6 MG TAB PO SCH (21:28)
[2018-09-25] MEDS: OXYCODONE HCL IR 5 MG TAB (IMMEDIATE RELEASE) PO PRN ×2 (06:29→15:40)
[2018-09-25] MEDS: ASPIRIN 81 MG ECTAB PO SCH (09:05)
[2018-09-25] MEDS: ACETAMINOPHEN 325 MG TAB PO PRN ×2 (09:06→15:44)
--- NOTE | 2018-09-25 10:44 | Progress Note ---
DATE: 09/25/2018 SUBJECTIVE: An 88-year-old white female postop day 2 from right cemented bipolar hip arthroplasty for fracture. She seems to be doing okay. Pain seems to be controlled. Did not do very well in therapy apparently. No chest pain or shortness of breath. Not feeling dizzy or lightheaded. OBJECTIVE: VITAL SIGNS: Temperature 36.5. Vital signs stable. PHYSICAL EXAMINATION: GENERAL: Reveals a pleasant elderly female. She is lying in bed. She is awake, alert and appropriate. EXTREMITIES: Examination of the right hip and leg reveals the incision to be clean, dry and intact. Leg lengths are equal. She can dorsiflex and plantarflex her foot appropriately. She is neurologically intact. LABORATORY DATA: None. ASSESSMENT: An 88-year-old white female postop day 2 from right cemented bipolar hip arthroplasty for fracture. Orthopedically, she is doing okay. Hip is located. She is neurologically intact. PLAN: 1. DVT prophylaxis including thigh-high TEDs, SCDs, and would recommend a baby aspirin twice a day for 6 weeks. 2. PT/OT. Weight bear as tolerated. Right total hip protocol. 3. Pain control, doing okay with current pain regimen. 4. Disposition: She is orthopedically okay for discharge any time medically stable. She will certainly need a rehab or nursing home facility stay. I need to see her back 2 weeks out from surgery date. Any orthopedic questions can be directed to me at [phone].
[2018-09-25] MEDS ORDERED: POLYETHYLENE (MIRALAX) 17 GM PACK PO SCH (18:00)
--- NOTE | 2018-09-25 18:43 | Discharge Summary ---
Date of Service September 25, 2018 Admission HPI Per Admitting Provider 88-year-old female with no known past medical history presents with a right hip fracture following mechanical fall. The injury occurred while she was hanging something on her porch. She states that she misjudged where the hook was and fell forward. She denies any syncope or loss of consciousness prior to or after the fall. She denies any head injury. Unfortunately, patient lives alone and laid on the porch for approximately 3 hours before she was found by her neighbors. She states that she is fully independent and is able to drive and grocery shop on her own. Prior to fall the patient is able to get up and down stairs on her own. She denies any history of heart disease, renal disease, diabetes, CHF, TIA/stroke. She does not take any blood thinning medications. She endorses a healthy diet and normal bowel movements. She reports that she is never gone to a doctor other than her eye doctor and medical history is therefore unknown. Her only son lives in [place], but the patient states that she is well supported by her neighbors and her friends. Review of systems Constitutional; no fevers, chills, night sweats CV; no chest pain, no shortness of breath, no palpitations Pulmonary; no cough, no wheezing GI; no abdominal pain, no nausea/vomiting/diarrhea MSK; right hip pain standing down her right leg Admission Exam Per Admitting Provider VITAL SIGNS: Temperature is 37.1. Vital signs stable. GENERAL: Physical examination shows a pleasant, elderly female. She is lying in bed and looks pretty comfortable. She is awake, alert and appropriate and oriented. MUSCULOSKELETAL: General musculoskeletal exam reveals painless range of motion of the cervical and thoracic and lumbar spine. She has no pain in her upper extremities and normal function of her upper extremities. Examination of the lower extremities reveals painless and full range of motion of left hip, knee, and ankle. Examination of the right hip and leg reveals the leg to be shortened and externally rotated. Moderate soft tissue envelope. She has no knee effusion. She can dorsiflex and plantarflex her foot appropriately. Principal Diagnosis hip fracture Discharge Exam General: A&Ox3. NAD. Cooperative. Laying in bed at time of visit. HEENT: Atraumatic, normocephalic. Pulm: CTAB A&P. -wheezes, -rales, -rhonchi. Symmetrical chest rise. No increased work of breathing. No respiratory distress. Cardiac: iii/vi systolic murmur. RRR, -rg. Radial pulses intact and symmetrical. Abdominal: Nontender, nondistended, soft. BS present. Extremity: Posteriolateral R hip with surgical dressing in place, C/D/I. No pus, discharge, bleeding appreciated. Discharge Data Allergies Allergy/AdvReac Type Severity Reaction Status Date / Time No Known Allergies Allergy Unverified 09/22/18 22:54 Consultations 09/22/18 23:01 ED Decision to Admit Stat 09/23/18 01:14 Consult Case Management - Discharge Planning Routine Consult Orthopedic Surgery Routine 09/23/18 16:26 Consult Case Management - Discharge Planning Routine Procedures Performed Operation Date: 09/23/18 10:00 Actual Procedures p Bipolar Hip Prosthesis-Cemented(Right) - Pasquale Light MD Hospital Course (1) Closed fracture of right hip: Jaz Harris is an 88-year-old female with cataracts and no other known past medical history who presented after being found down by her neighbor following a fall with right hip fracture confirmed on x-ray. Right hip fracture, closed, s/p R cemented bipolar hip arthroplasty Jaz presented to the emergency department with right hip pain following a mechanical fall. A minimally displaced anterior right femoral neck fracture was confirmed on x-ray. She underwent surgical repair with Dr. Light on 09/23/2018 with no operative complications. She had good pain control with Tylenol 650 mg and Dilaudid as needed. She was placed on aspirin 81mg for prophylaxis. Her activity was advanced per surgical recommendations she was seen by PT/OT with weightbearing as tolerated. Per physical therapy she showed an 85% functional loss in the setting of RoM, strength, bed mobility, transfer mobility, and ambulation reduction. She was discharged to subacute rehab for further strength training and rehabilitation. She will have follow-up with Dr. Light in orthopedics in 3 to 4 weeks. Fall Before admission Evi sustained a mechanical fall when she was reaching over to hang a plant and missed the hook. She reports this was due to decreased visual acuity for which she is seen an trading floor operator and is chronic in nature. She did not have any lightheadedness, dizziness or symptoms concerning for cardiac or neurogenic syncope. Her EKG showed a normal sinus rhythm. She had no focal neurologic deficits during exam. She was discharged for strength and balance training with rehab as noted above. (2) Fall: Total Time Total Time Spent Total Time Spent (In Minutes): <30 Discharge Plan Discharge Items Patient Disposition: Transfer Inpatient Rehab Fac Reason For Visit: RIGHT HIP FRACTURE Discharge Diagnosis: Right Hip Arthroplasty for Fracture Discharge Goals: Decrease discomfort, Improve disease control, Improve function and Therapeutic intervention Activity: Per 'Additional Instructions' section Activity Comment: Obey hip precautions at all times Weightbearing: Right weightbearing Weightbearing Comment: Weightbear as tolerated obeying hip precautions. Non-emergency contact: Surgeon Call non-emergency contact if: you have any medication questions Follow-up/Referrals: Pasquale Light MD [Surgeon] - PCP,YOHAN [Primary Care Provider] - Diet: Regular Addtl Provider Instructions: You were seen in the hospital for a broken hip after a fall. You had hip repair surgery with Dr. Light. You have lost strength due to your fall and surgery and are being referred for inpatient rehab. You have been prescribed a medication for pain, acetaminophen (tylenol). You may take tylenol 650mg every 4-6 hours as needed for pain. Please DO NOT exceed more than 3,000mg of tylenol in any 24 hour period. If your pain is increasing or unable to be controlled with your medications, please contact your primary care physician or Dr. Light at the numbers listed below. You have been prescribed a medication to prevent clots, aspirin. Please take a low dose aspirin 81mg daily for three months. If you develop any fevers, chills, increasing pain at your surgical site, drainage (including blood, fluid, and/or pus) from your surgical site, tenderness/warmth at your surgical site, difficulty breathing, shortness of breath, or increasing weakness please call Dr. Light's office at , or call 911 for transport to the emergency department if you are very concerned. ACTIVITY RECOMMENDATIONS: Physical Therapy: * Aggressive physical therapy is not usually needed. You will learn to take care of yourself safely and walk. * Follow the "Hip Precautions Instructions." * In some cases, the social services technician at the hospital will arrange to have a therapist come to your house for the first couple of weeks to help you learn these skills. * You need to practice on your own or with the help of a family member as needed. * When you learn these skills, most of the therapy can be done on your own. Home Exercise: * You were shown a series of exercises in the hospital. Do these exercises three to four times each day including the exercises you were shown in physical therapy. Walking: * Get up and walk several times each day. For the first four weeks, try not to stand or walk for more than one hour at a time. If you do stand or walk for more than one hour, you will not hurt anything, but your leg will likely swell. * As you feel comfortable, you may change from the walker or crutches to a cane and then to independent walking. MEDICATIONS: New Medicine: * You will likely be taking one or more of these medicines: 1. Tramadol - Take, as directed, when you need it, every six hours to control your pain. 2. Iron Sulfate - Take two times each day for the month after surgery to help you replace the blood lost during surgery. 3. Aspirin - Thins your blood to lessen the chance of forming a blood clot. * The most common side effects of pain medicine and iron are nausea and constipation. If nausea or constipation is too much of a problem or if you have any questions about your new medicines or doses, call [facility] at [phone]. We will try to help you manage these issues. "VERY IMPORTANT TO READ AND REVIEW" Pain: * The immediate post-operative period after hip replacement surgery is often quite painful. * You are given a prescription for pain medicine. You should take it, as directed, when you need it, especially before physical therapy and before going to bed. Pain that interferes with sleep is very common and can last several months. * You will likely need pain medicine for the first two to four weeks. It will not stop all of the pain. The pain will lessen and as you feel better, you may change to milder pain medicine such as Tylenol. * The most common side effects of pain medicine are nausea and constipation, so don't take more than you need. SPECIAL CARE INSTRUCTIONS: TEDs/Elastic Stockings: * The white elastic stockings help limit swelling and prevent blood clots from forming in your legs. The more you wear them, the more they work. * Wear them for six weeks. Prevention of Infection: * Take antibiotics one hour before any dental cleaning, dental work, urological procedure, gastrointestinal procedure or any invasive surgery in order to prevent your new joint from getting infected. * You may get the antibiotics from the doctor performing the procedure or you may call our office at before and we will call in a prescription to the pharmacy of your choice. Things to Watch For: * Drainage from the incision site that occurs more than one week after your surgery. * Severely increased leg pain or swelling. * Increased redness at the incision site. * Fever above 102 degrees Fahrenheit. * Unusual chest pain or shortness of breath. * Unusual pain or burning with urination. Call [facility] at with any of the above problems or if you have any questions about your medicines or recovery. FOLLOW UP VISIT: Make an appointment to see your doctor for approximately two weeks after surgery for a progress check and staple removal by calling the office at . Prescriptions: New acetaminophen [Mapap (acetaminophen)] 325 mg Tablet 650 mg PO Q4H PRN (Reason: pain) 21 Days Qty: 240 RF: 0 aspirin [Ecotrin Low Strength] 81 mg Tablet,Delayed Release (Dr/Ec) 81 mg PO BID 90 Days Qty: 180 RF: 0 oxycodone 5 mg capsule 5 mg PO TID PRN (Reason: pain) Qty: 20 RF: 0 Continued Artificial Tears (PF) 0.1-0.3 % Dropperette 1 drp OPB DAILY PRN (Reason: Dry Eyes) RF: 0 Eye Vitamins 1 tab PO BID RF: 0 Stand-Alone Forms: [facility] Discharge Orders: Discharge Order (Routine); Ordered 09/25/18 Ordered By: Francisco Javier Altman Skilled Items Patient informed of condition?: Yes DNR: No Discharge Level of Care: Acute rehab Communicable Disease: No Discharge Prognosis: Improving Admission Data Admit Date/Time: 09/23/18 00:11 Attending Provider: Francisco Javier Altman Admit Provider: Truman Damian Primary Care Provider: PCP,NO Other Providers: Flavio Gary John C Service: Surgical Services Other Interventions: Discharge Summary Assessment (RN) Last Done: 09/25/18 13:30 DC Date/Time DO NOT enter until pt leaves facility: 09/25/18 16:21 Supervising Physician Co-Signing Physician Notes I personally examined the patient and verified all conway points of history and exam, discussed case, and agree with decision making with Dr Younger. ready to go to rehab. willing to go. Vitals noted, in general she is awake and alert pleasant no distress. HEENT normocephalic atraumatic mucous members moist. Neuro shows no focal deficits Hip fractureosteoporosis work-up as an outpatient, stable for rehab DVT prophylaxisPer orthopedics (aspirin twice daily) stable for rehab Resident Activity Tracking Resident Involvement: Resident Care Provided Care Provided: Adult Hospital Medicine
== END 2018-09-25 16:21 | DRG 470 ==
LOC: ED 21:28 → SUATTDRO 09-23 00:11 → 2N 09-23 00:11 → 3N 09-23 15:30